=== PATIENT | male | born 1955 | race Caucasian/White ===

== ENCOUNTER 2024-10-31 12:50 | Emergency (ER) | payer OTHER | END 2024-10-31 13:49 | LOC: NAV ERS 12:50 → EEVIPCON 12:50 → NAV ERS 13:49 | DX: S22.42XA Multiple fractures of ribs, left side, initial encounter for closed fracture (principal); I10 Essential (primary) hypertension; Z79.899 Other long term (current) drug therapy; W06.XXXA Fall from bed, initial encounter | CPT/HCPCS: 99283 ==